=== PATIENT | male | born 1990 | race Caucasian/White ===

== ENCOUNTER 2020-07-08 00:07 | Inpatient (IN) | payer MEDICAID ==
[~2020-07-08] VITALS: Ht 177.8 cm; Wt 66.2 kg
[2020-07-08] MEDS ORDERED: HALOPERIDOL 5 MG TABLET PO PRN (03:15)
[2020-07-08 05:19] VITALS: BP 112/82
[2020-07-08] MEDS ORDERED: INFLUENZA VIRUS VACCINE QVS 2020-21 (6MO+)/PF 60 MCG/0.5 ML SYRINGE IM ONE (06:00)
[2020-07-08 08:16] VITALS: BP 108/69
[2020-07-08] MEDS ORDERED: BENZOCAINE/MENTHOL LOZENGE PO PRN (09:00)
[2020-07-08] MEDS ORDERED: CloNIDine HCL 0.1 MG TABLET PO PRN (09:00)
[2020-07-08] MEDS ORDERED: OMEPRAZOLE 20 MG CAPSULE PO PRN (09:00)
[2020-07-08] MEDS ORDERED: PETROLATUM,WHITE 28 GM JELLY TP PRN (09:00)
[2020-07-08] MEDS ORDERED: ONDANSETRON HCL 4 MG TABLET PO PRN (09:00)
[2020-07-08] MEDS ORDERED: BACITRACIN 28 GM OINTMENT TP PRN (09:00)
[2020-07-08] MEDS ORDERED: ALBUTEROL SULFATE HFA 90 MCG/PUFF 8 GM INHALER IH PRN (09:00)
[2020-07-08] MEDS ORDERED: MAGNESIUM HYDROXIDE SUSPENSION 30 ML UDCUP PO PRN (09:00)
[2020-07-08] MEDS ORDERED: DOCUSATE SODIUM 100 MG CAPSULE PO PRN (09:00)
[2020-07-08] MEDS ORDERED: MAG HYDROX/AL HYDROX/SIMETH ES 30 ML SUSPENSION UDCUP PO PRN (09:00)
[2020-07-08] MEDS ORDERED: LOPERAMIDE HCL 2 MG CAPSULE PO PRN (09:00)
[2020-07-08] MEDS: LORazepam 2 MG TABLET PO PRN (09:45)
[2020-07-08 10:02] VITALS: BP 109/72
[2020-07-08] MEDS: IBUPROFEN 600 MG TABLET PO PRN (10:02)
[2020-07-08 16:10] VITALS: BP 127/85
[2020-07-08] MEDS: OLANZapine 5 MG TABLET PO SCH (20:36)
[2020-07-08] MEDS: ZOLPIDEM TARTRATE 10 MG TABLET PO PRN (20:39)
[2020-07-09 04:45] VITALS: BP 122/71
[2020-07-09 08:18] LABS: BASOPHILS % (AUTO) 0.9 % (0.0-2.0); EOSINOPHILS % (AUTO) 3.9 % (1.0-6.0); HEMATOCRIT 46.6 % (41-53); HEMOGLOBIN 15.9 g/dL (13.5-17.5); LYMPHOCYTES # (AUTO) 2.3 K/uL (1.0-4.8); LYMPHOCYTES % (AUTO) 35.7 % (22.0-44.0); MEAN CORPUSCULAR HEMOGLOBIN 32.5 pg (26.0-34.0); MEAN CORPUSCULAR HGB CONC 34.2 G/dL (31.0-37.0); MEAN CORPUSCULAR VOLUME 95 fL (80-100); MONOCYTES # (AUTO) 0.8 K/uL (0.1-1.0); MONOCYTES % (AUTO) 12.9 % (2.0-9.0); NEUTROPHILS % (AUTO) 46.6 % (40.0-70.0); PLATELET COUNT (AUTO) 281 K/uL (150-450); RED BLOOD CELL COUNT(AUTO) 4.91 MIL/uL (4.50-5.90); RED CELL DISTRIBUTION WIDTH 12.8 % (11.5-14.5)
[2020-07-09 08:45] VITALS: BP 121/86
[2020-07-09 08:58] LABS: ALANINE AMINOTRANSFERASE 77 U/L (12-78); ALBUMIN 4.2 g/dL (3.4-5.0); ALKALINE PHOSPHATASE 61 U/L (46-116); ANION GAP 7 mmol/L (8-16); ASPARTATE AMINOTRANSFERASE 26 U/L (15-37); BILIRUBIN,TOTAL 0.5 mg/dL (0.1-1.0); CALCIUM, TOTAL 9.7 mg/dL (8.8-10.5); CARBON DIOXIDE 31 mmol/L (22-29); CHLORIDE 106 mmol/L (98-107); CHOL/HDL RATIO 3.7 (4.2-7.3); CHOLESTEROL 191 mg/dL (131-200); CREATININE 0.94 mg/dL (0.60-1.30); FREE T4 (FREE THYROXINE) 1.15 ng/dL (0.76-1.46); GLOMERULAR FILTR. RATE CALC > 60 mL/min (>60); GLUCOSE,RANDOM 101 mg/dL (70-110); HDL CHOLESTEROL 52 mg/dL (40-60); LDL CHOL (CALC.) 127 mg/dL (0-130); POTASSIUM 4.2 mmol/L (3.5-5.1); SODIUM SERUM 144 mmol/L (136-145); THYROID STIMULATING HORMONE 2.61 uIU/mL (0.36-3.74); TOTAL PROTEIN, SERUM 7.5 g/dL (6.4-8.2); TRIGLYCERIDES 58 mg/dL (15-150); UREA NITROGEN, BLOOD 15 mg/dL (7-18)
[2020-07-09] MEDS: CITALOPRAM HYDROBROMIDE 20 MG TABLET PO SCH (09:15)
[2020-07-09 16:44] VITALS: BP 110/73
[2020-07-09] MEDS: OLANZapine 5 MG TABLET PO SCH (20:43)
[2020-07-09] MEDS: ZOLPIDEM TARTRATE 10 MG TABLET PO PRN (20:49)
[2020-07-10 05:50] VITALS: BP 112/80
[2020-07-10] MEDS: CITALOPRAM HYDROBROMIDE 20 MG TABLET PO SCH (08:36)
[2020-07-10 08:56] VITALS: BP 103/69
[2020-07-10] MEDS: IBUPROFEN 600 MG TABLET PO PRN (10:31)
[2020-07-10 16:21] VITALS: BP 107/75
[2020-07-10] MEDS: ZOLPIDEM TARTRATE 10 MG TABLET PO PRN (20:37)
[2020-07-10] MEDS: OLANZapine 5 MG TABLET PO SCH (20:37)
[2020-07-11 04:30] VITALS: BP 111/77
[2020-07-11 08:23] VITALS: BP 119/79
[2020-07-11 08:39] VITALS: BP 119/79
[2020-07-11] MEDS: LORazepam 2 MG TABLET PO PRN (08:43)
[2020-07-11] MEDS: CITALOPRAM HYDROBROMIDE 20 MG TABLET PO SCH (08:43)
[2020-07-11] MEDS: ACETAMINOPHEN 325 MG TABLET PO PRN (08:43)
[2020-07-11 16:16] VITALS: BP 125/85
[2020-07-11] MEDS: ZOLPIDEM TARTRATE 10 MG TABLET PO PRN (20:24)
[2020-07-11] MEDS: OLANZapine 5 MG TABLET PO SCH (20:26)
[2020-07-12 01:30] VITALS: BP 118/78
[2020-07-12 08:57] VITALS: BP 129/80
[2020-07-12] MEDS: CITALOPRAM HYDROBROMIDE 20 MG TABLET PO SCH (09:20)
[2020-07-12] MEDS: LORazepam 2 MG TABLET PO PRN ×2 (09:24→20:17)
[2020-07-12] MEDS: ACETAMINOPHEN 325 MG TABLET PO PRN (09:24)
[2020-07-12 16:27] VITALS: BP 118/85
[2020-07-12] MEDS: OLANZapine 5 MG TABLET PO SCH (20:17)
[2020-07-12] MEDS: IBUPROFEN 600 MG TABLET PO PRN (20:18)
[2020-07-13 05:37] VITALS: BP 122/78
[2020-07-13] MEDS: CITALOPRAM HYDROBROMIDE 20 MG TABLET PO SCH (09:44)
[2020-07-13] MEDS: LORazepam 2 MG TABLET PO PRN ×2 (15:12→20:17)
[2020-07-13 17:35] VITALS: BP 118/77
[2020-07-13] MEDS: ZOLPIDEM TARTRATE 10 MG TABLET PO PRN (20:17)
[2020-07-13] MEDS: OLANZapine 5 MG TABLET PO SCH (20:17)
[2020-07-14 05:17] VITALS: BP 116/70
[2020-07-14 08:17] VITALS: BP 100/60
[2020-07-14] MEDS: CITALOPRAM HYDROBROMIDE 20 MG TABLET PO SCH (08:55)
[2020-07-14] MEDS: ACETAMINOPHEN 325 MG TABLET PO PRN (12:30)
[2020-07-14] MEDS ORDERED: OLAN5TAB2 PO (12:40)
[2020-07-14] MEDS ORDERED: CITA-144 PO (12:41)
== END 2020-07-14 13:00 | disposition home or self-care (01) | DRG 754 ==
LOC: B3A 03:00
PROVIDERS: ADMIT Psychiatry & Neurology Psychiatry; ATTEND Psychiatry & Neurology Psychiatry
DX: F32.9 Major depressive disorder, single episode, unspecified (principal); K59.00 Constipation, unspecified; F41.9 Anxiety disorder, unspecified; G47.00 Insomnia, unspecified
CPT/HCPCS: 83036; 84439; 84443